=== PATIENT | male | born 1970 | race Caucasian/White ===

== ENCOUNTER 2017-04-30 08:04 | Day surgery (SDC) | payer OTHER ==
[~2017-04-30] VITALS: Ht 188 cm; Wt 108.2 kg
[~2017-04-30 08:04] MED LIST: MULT-658 PO
[2017-04-30] MEDS ORDERED: LACTATED RINGERS 1,000 ML IV SCH (08:35)
[2017-04-30 08:38] VITALS: BP 131/86
[2017-04-30 09:18] LABS: HEMATOCRIT 50.2 % (39.2-51.8); HEMOGLOBIN 17.5 g/dL (13.7-18.0); WHITE BLOOD COUNT 5.6 x10^3/uL (3.4-10)
[2017-04-30] MEDS ORDERED: MIDAZOLAM 1 MG/ML, 2ML ONE (09:23)
[2017-04-30] MEDS ORDERED: FENTANYL PF 100 MCG/2ML ONE ×4 (09:24→12:33)
[2017-04-30 09:25] LABS: ASPARTATE AMINO TRANSFERASE 31 U/L (15-37); BLOOD UREA NITROGEN 18 mg/dL (7-18)
[2017-04-30] MEDS ORDERED: BUPIVACAINE/PF 0.5% ONE ×2 (09:57→10:37)
[2017-04-30] MEDS ORDERED: EPINEPHRINE 1 MG/ML, 1ML ONE ×2 (09:57→10:37)
[2017-04-30] MEDS ORDERED: DEXAMETHASONE 4 MG/ML, 5ML ONE (10:11)
[2017-04-30] MEDS ORDERED: CEFOTETAN 2 GM ONE (10:11)
[2017-04-30] MEDS ORDERED: ONDANSETRON 2MG/ML, 2ML ONE (10:11)
[2017-04-30] MEDS ORDERED: ROCURONIUM 10 MG/ML ONE ×2 (10:11)
[2017-04-30] MEDS ORDERED: SUCCINYLCHOLINE 20 MG/ML, 10ML ONE (10:11)
[2017-04-30] MEDS ORDERED: PROPOFOL 10 MG/ML, 20ML ONE (10:11)
[2017-04-30] MEDS ORDERED: BUPIVACAINE/PF-EPI 0.5% 1:200K INFIL ONE (10:45)
[2017-04-30] MEDS ORDERED: OXYcodone 5 MG/5 ML ORAL.SOL UDC ONE (11:54)
[2017-04-30] MEDS ORDERED: ACETAMINOPHEN 650 MG/20.3 ML UDC ONE (11:55)
[2017-04-30] MEDS ORDERED: ACETAMINOPHEN 325 MG TABLET ONE (11:55)
[2017-04-30] MEDS ORDERED: hydrALAzine 20 MG/ML, 1ML IV PRN (12:30)
[2017-04-30] MEDS ORDERED: ALBUTEROL SULFATE 2.5 MG/3 ML NPPB PRN (12:30)
[2017-04-30] MEDS ORDERED: LABETALOL 5MG/ML, 20ML IV PRN (12:30)
[2017-04-30] MEDS ORDERED: HYDROmorphone 1 MG/ML, 1ML IV PRN (12:30)
[2017-04-30] MEDS ORDERED: HYDROcodone/APAP 7.5-325MG/15ML UDC PO PRN (12:30)
[2017-04-30] MEDS ORDERED: OXYcodone 5 MG/5 ML ORAL.SOL UDC PO PRN (12:30)
[2017-04-30] MEDS ORDERED: FENTANYL PF 100 MCG/2ML IV PRN (12:30)
[2017-04-30] MEDS ORDERED: ONDANSETRON 2MG/ML, 2ML IVPush PRN (12:30)
== END 2017-04-30 16:20 | disposition home or self-care (01) ==
LOC: OUT 08:04
PROVIDERS: ATTEND Surgery
DX: K80.10 Calculus of gallbladder with chronic cholecystitis without obstruction (principal); K80.44 Calculus of bile duct with chronic cholecystitis without obstruction; E78.5 Hyperlipidemia, unspecified; Z98.890 Other specified postprocedural states
CPT/HCPCS: 36415; 47563; 74300; 80053; 85025; 88304; C1760; J0171; J0330; J1100; J2250; J2405; J2704; J3010; J3490; J7120; S0074

== ENCOUNTER 2017-09-10 07:30 | Day surgery (SDC) | payer OTHER ==
[~2017-09-10] VITALS: Ht 188 cm; Wt 112.2 kg
[2017-09-10 08:16] VITALS: BP 133/82
[2017-09-10] MEDS ORDERED: LIDOCAINE 1%, 2ML ONE (08:25)
[2017-09-10] MEDS ORDERED: LACTATED RINGERS 1,000 ML IVBOLUS ONE (08:30)
[2017-09-10] MEDS ORDERED: MIDAZOLAM 1 MG/ML, 2ML ONE (08:53)
[2017-09-10] MEDS ORDERED: FENTANYL PF 100 MCG/2ML ONE ×2 (08:53→09:16)
[2017-09-10] MEDS ORDERED: ACETAMINOPHEN 325 MG TABLET PO PRN (09:00)
[2017-09-10] MEDS ORDERED: FENTANYL PF 100 MCG/2ML IV PRN (09:00)
[2017-09-10] MEDS ORDERED: LIDOCAINE 1%, 2ML SQ PRN (09:00)
[2017-09-10] MEDS ORDERED: OXYcodone 5 MG/5 ML ORAL.SOL UDC PO PRN (09:00)
[2017-09-10] MEDS ORDERED: SUCCINYLCHOLINE 20 MG/ML, 10ML ONE (09:00)
[2017-09-10] MEDS ORDERED: ONDANSETRON 2MG/ML, 2ML IVPush PRN (09:00)
[2017-09-10] MEDS ORDERED: MEPERIDINE/PF 25MG/0.5ML IVPush PRN (09:00)
[2017-09-10] MEDS ORDERED: ONDANSETRON 2MG/ML, 2ML ONE (09:00)
[2017-09-10] MEDS ORDERED: HYDROmorphone 1 MG/ML, 1ML IV PRN (09:00)
[2017-09-10] MEDS ORDERED: PIPERACILLIN/TAZO/PMX 3.375GM 50 ML IV ONE (09:00)
[2017-09-10] MEDS ORDERED: DEXAMETHASONE 4 MG/ML, 1ML ONE (09:00)
[2017-09-10] MEDS ORDERED: ALBUTEROL/IPRATROPIUM 2.5MG/0.5MG, 3 ML ONE (10:53)
[2017-09-10] MEDS ORDERED: ALBUTEROL/IPRATROPIUM 2.5MG/0.5MG, 3 ML NPPB PRN (11:00)
[2017-09-10] MEDS ORDERED: ALBUTEROL SULFATE 2.5 MG/3 ML NPPB PRN (11:00)
== END 2017-09-10 12:10 ==
LOC: OUT 07:30
PROVIDERS: ATTEND Internal Medicine Gastroenterology
DX: K80.50 Calculus of bile duct without cholangitis or cholecystitis without obstruction (principal)
CPT/HCPCS: 43264; 74328; 94640; C1769; J0330; J1100; J2250; J2405; J2543; J3010; J7120; J7620